=== PATIENT | male | born 2000 ===

== ENCOUNTER 2024-10-05 00:14 | Emergency (ER) | payer MEDICAID ==
[2024-10-05] MEDS: Dexamethasone 1 MG/ML Oral Drops 30 ML Bottle PO ONE (01:40)
== END 2024-10-05 03:50 | disposition home or self-care (01) ==
LOC: JD.ED 00:14
DX: J02.0 Streptococcal pharyngitis (principal)
CPT/HCPCS: 87651; 99284; A9270